=== PATIENT | female | born 2000 | race Caucasian/White ===

== ENCOUNTER 2024-06-27 12:44 | Day surgery (SDC) | payer SELFPAY ==
[2024-06-20 12:32] VITALS: BMI 19.5
[2024-06-27] MEDS ORDERED: ceFAZolin SODIUM 1 GM VIAL ONE (13:53)
[2024-06-27] MEDS ORDERED: LIDOCAINE HCL/PF 2% SDV 5ML VIAL ONE (13:53)
[2024-06-27] MEDS ORDERED: MIDAZOLAM HCL 2 MG/2 ML SINGLE DOSE VIAL ONE (13:54)
[2024-06-27] MEDS ORDERED: PROPOFOL 20 ML ONE (13:54)
[2024-06-27] MEDS ORDERED: LIDOCAINE 1%/EPI 1:100000 (20 ML MULTI DOSE VIAL) ONE (13:56)
[2024-06-27] MEDS ORDERED: BUPIVACAINE HCL/PF 0.25% (2.5MG/ML) 10 ML VIAL ONE (13:56)
[2024-06-27] MEDS ORDERED: BUPIVACAINE HCL/PF 2.5 MG/ML - 30 ML VIAL IJ ONE (13:56)
[2024-06-27] MEDS ORDERED: BACITRACIN ZINC 15 GM TUBE TOPICAL OINTMENT ONE (13:56)
[2024-06-27] MEDS ORDERED: DEXAMETHASONE SOD PHOSPHATE 4 MG/1 ML VIAL ONE (16:45)
[2024-06-27] MEDS ORDERED: ONDANSETRON 4 MG/2 ML VIAL ONE ×2 (16:45→19:10)
[2024-06-27] MEDS: BUPIVACAINE HCL/PF 0.25% (2.5MG/ML) 10 ML VIAL IJ ONE (17:00)
[2024-06-27] MEDS: LIDOCAINE 1%/EPI 1:100000 (20 ML MULTI DOSE VIAL) IJ ONE ×2 (17:00)
[2024-06-27] MEDS ORDERED: PROMETHAZINE HCL 25 MG/1 ML VIAL IVPB PRN (18:03)
[2024-06-27] MEDS ORDERED: oxyCODONE HCL 5 MG TABLET PO PRN ×2 (18:03)
[2024-06-27] MEDS ORDERED: LACTATED RINGERS SOLUTION 1,000 ML IV SCH (18:15)
[2024-06-27] MEDS ORDERED: ACETAMINOPHEN INJECTION 100 ML ONE (18:57)
[2024-06-27] MEDS: ACETAMINOPHEN 1000 MG/100 ML BAG IVPB ONE (19:00)
[2024-06-27 19:06] VITALS: TEMP 98.2
[2024-06-27] MEDS ORDERED: PROMETHAZINE HCL 25 MG/1 ML VIAL ONE (19:09)
[2024-06-27] MEDS: ONDANSETRON 4 MG/2 ML VIAL IVPUSH PRN (19:12)
[2024-06-27] MEDS: SCOPOLAMINE HYDROBROMIDE 1 PATCH PATCH.TD72 TD SCH (19:20)
[2024-06-27 20:26] VITALS: BP 114/68; PULSE 72; RESP 17
== END 2024-06-27 20:28 | disposition home or self-care (01) ==
LOC: FASU 12:44
PROVIDERS: ATTEND Surgery
CPT/HCPCS: 81025; 94760; J0131